=== PATIENT | female | born 1935 | race Caucasian/White ===

== ENCOUNTER 2018-03-20 15:03 | Outpatient (CLI) | payer MEDICARE | END 2018-03-20 15:04 | disposition home or self-care (01) | LOC: BICRAD 15:03 | PROVIDERS: ATTEND Physician Assistant Medical | DX: R07.9 Chest pain, unspecified (principal); R68.83 Chills (without fever) | CPT/HCPCS: 71046 ==

== ENCOUNTER 2018-03-23 11:08 | Outpatient (CLI) | payer MEDICARE | END 2018-03-23 11:09 | disposition home or self-care (01) | LOC: BICCT 11:08 | PROVIDERS: ATTEND Family Medicine | DX: R07.9 Chest pain, unspecified (principal); R06.02 Shortness of breath; J18.9 Pneumonia, unspecified organism; R91.1 Solitary pulmonary nodule; R59.0 Localized enlarged lymph nodes; M85.80 Other specified disorders of bone density and structure, unspecified site | CPT/HCPCS: 71250 ==

== ENCOUNTER 2018-08-28 12:06 | Outpatient (CLI) | payer MEDICARE ==
--- NOTE | 2018-08-28 13:33 | RAD ---
PA AND LATERAL CHEST: History: Chest pain. Comparison: 03-20-18 FINDINGS: Heart size is borderline. There are some atherosclerotic changes of the aorta. Marked chronic lung ch anges are seen. No focal infiltrative process noted. IMPRESSION: 1. Borderline heart size. 2. Chronic lung change. POS: [facility]
== END 2018-08-28 12:07 | disposition home or self-care (01) ==
LOC: BICRAD 12:06
PROVIDERS: ATTEND Family Medicine
DX: R07.9 Chest pain, unspecified (principal); J98.4 Other disorders of lung
CPT/HCPCS: 36415; 71046; 80053; 82150; 82550; 82553; 83690; 84484; 85025; 85652

== ENCOUNTER 2018-09-05 13:23 | Outpatient (CLI) | payer MEDICARE ==
--- NOTE | 2018-09-05 14:20 | RAD ---
TWO VIEWS CHEST: Comparison: 08-28-18 History: Shortness of breath. FINDINGS: Two views of the chest shows normal sized cardiomediastinal silhouette. Increased interstitial markin gs are present. There appears to be a superimposed airspace opacity in the left lower lobe which was not seen on the prior examination. Biapical pleural thickening is seen. IMPRESSION: 1. Early left upper lobe infiltrate. 2. Chronic interstitial lung disease. POS: [facility]
== END 2018-09-05 13:24 | disposition home or self-care (01) ==
LOC: BICRAD 13:23
PROVIDERS: ATTEND Family Medicine
DX: R06.02 Shortness of breath (principal); J84.9 Interstitial pulmonary disease, unspecified; R91.8 Other nonspecific abnormal finding of lung field
CPT/HCPCS: 71046

== ENCOUNTER 2018-10-09 10:17 | Outpatient (CLI) | payer MEDICARE ==
--- NOTE | 2018-10-09 12:47 | ULT ---
GALLBLADDER ULTRASOUND: HISTORY: Hepatitis C. COMPARISON: 07/01/2014. TECHNIQUE: Utilizing a multihertz transducer, sonographic imaging of the right upper quadrant was performed in t he longitudinal and transverse plane. FINDINGS: The head and proximal pancreatic body has a normal echotexture. Hepatic parenchyma has a normal echotexture. No hepatic masses or intrahepatic biliary dilatation. Contour of the hepatic margin is maintained. There is a calcification of the right hepatic lobe like ly due to previous granulomatous disease. Subcentimeter anechoic focus in the left hepatic lobe like ly represents a 0.4 x 0.3 x 0.4 cyst. The right kidney has a normal cortical echotexture. No hydronephrosis. The right kidney measures 3. 8 x 4.0 x 8.3 cm. Common bile duct diameter is 0.4 cm. No sonographic evidence of cholelithiasis, gallbladder wall thickening, or pericholecystic fluid. Ne gative Palomino's sign. IMPRESSION: No sonographic evidence of cholelithiasis or cholecystitis. POS: [facility]
== END 2018-10-09 10:18 | disposition home or self-care (01) ==
LOC: BICULT 10:17
PROVIDERS: ATTEND Family Medicine
DX: B18.2 Chronic viral hepatitis C (principal)
CPT/HCPCS: 76705

== ENCOUNTER 2018-12-07 11:13 | Outpatient (CLI) | payer MEDICARE, OTHER ==
--- NOTE | 2018-12-07 11:47 | RAD ---
PA AND LATERAL VIEWS CHEST: HISTORY: Cough, wheezing. FINDINGS: Comparison is made with the exam of 09/05/2018. The heart size is normal. The lungs are expanded with stable chronic changes. The airspace opacity in the left upper lobe has resolved in the interim. No focal areas of consolidation, pneumothoraces, or pleural effusions are seen. Bony changes are stable. Biapical pleural thickening is again noted . IMPRESSION: No radiographic evidence of acute cardiopulmonary process. POS: [facility]
== END 2018-12-07 11:14 | disposition home or self-care (01) ==
LOC: BICRAD 11:13
PROVIDERS: ATTEND Family Medicine
DX: R05 Cough (principal)
CPT/HCPCS: 71046

== ENCOUNTER 2019-09-14 08:29 | Outpatient (CLI) | payer MEDICARE ==
--- NOTE | 2019-09-14 10:08 | ULT ---
GALLBLADDER ULTRASOUND: Date: 09/14/2019 HISTORY: Right upper quadrant pain. FINDINGS: Real-time imaging of the right upper quadrant shows a normal appearing gallbladder. The common duct i s in the 5-6 mm range. Liver is of heterogeneous echotexture. It measures 13.5 cm in length. Calcifie d granuloma is noted. Right kidney is normal in size and not obstructed. IMPRESSION: Mildly heterogeneous echotexture to the liver. No evidence of gallstones. Normal appearing pancreas a nd right kidney. POS: [facility]
== END 2019-09-14 08:30 | disposition home or self-care (01) ==
LOC: BICULT 08:29
PROVIDERS: ATTEND Family Medicine
DX: B19.20 Unspecified viral hepatitis C without hepatic coma (principal); R10.11 Right upper quadrant pain; R93.2 Abnormal findings on diagnostic imaging of liver and biliary tract
CPT/HCPCS: 76705

== ENCOUNTER 2019-09-17 12:17 | Outpatient (CLI) | payer MEDICARE ==
--- NOTE | 2019-09-17 12:58 | RAD ---
EXAM: Chest 2 views: HISTORY: Dyspnea COMPARISON: None. FINDINGS: There is a normal-sized cardiomediastinal silhouette. Increased interstitial markings are present. There is no evidence of consolidation, mass, or pleural effusion. Degenerative changes are seen in the spine. IMPRESSION: No evidence of acute cardiopulmonary disease
== END 2019-09-17 12:18 | disposition home or self-care (01) ==
LOC: RAD 12:17
PROVIDERS: ATTEND Internal Medicine Critical Care Medicine
DX: R06.00 Dyspnea, unspecified (principal)
CPT/HCPCS: 71046

== ENCOUNTER 2021-12-08 13:07 | Outpatient (CLI) | payer MEDICARE | END 2021-12-08 13:08 | disposition home or self-care (01) | LOC: RAD 13:07 | PROVIDERS: ATTEND Internal Medicine Critical Care Medicine | DX: R06.00 Dyspnea, unspecified (principal); R91.8 Other nonspecific abnormal finding of lung field | CPT/HCPCS: 71046 ==

== ENCOUNTER 2024-03-16 09:29 | Outpatient (CLI) | payer MEDICARE | END 2024-03-16 09:30 | disposition home or self-care (01) | LOC: BICMRI 09:29 | PROVIDERS: ATTEND Nurse Practitioner Family | DX: M54.14 Radiculopathy, thoracic region (principal); M40.204 Unspecified kyphosis, thoracic region; S22.069A Unspecified fracture of T7-T8 vertebra, initial encounter for closed fracture | CPT/HCPCS: 72146 ==

== ENCOUNTER 2024-05-23 11:25 | Outpatient (CLI) | payer MEDICARE ==
[~2024-05-23 11:25] MED LIST: Iopamidol 370 76% 100 ML VIAL ONE
== END 2024-05-23 11:26 | disposition home or self-care (01) ==
LOC: CT 11:25
PROVIDERS: ATTEND Family Medicine
DX: Z03.89 Encounter for observation for other suspected diseases and conditions ruled out (principal); R10.84 Generalized abdominal pain; K63.89 Other specified diseases of intestine; N20.0 Calculus of kidney; J98.4 Other disorders of lung
CPT/HCPCS: 71275; 74178; 82565; Q9967

== ENCOUNTER 2025-06-06 08:58 | Outpatient (CLI) | payer MEDICARE | END 2025-06-06 08:59 | disposition home or self-care (01) | LOC: ULT 08:58 | PROVIDERS: ATTEND Internal Medicine Nephrology | DX: N18.9 Chronic kidney disease, unspecified (principal); R31.29 Other microscopic hematuria; R30.0 Dysuria; R35.89 Other polyuria; R06.09 Other forms of dyspnea; R53.83 Other fatigue; R10.10 Upper abdominal pain, unspecified; N39.46 Mixed incontinence; R05.3 Chronic cough | CPT/HCPCS: 76770; 93976 ==